=== PATIENT | male | born 1995 | race Hispanic/Latino ===

== ENCOUNTER → 2021-12-04 | Outpatient (CLI) | payer OTHER ==
--- NOTE | 2021-12-06 23:59 | DIREP ---
PROCEDURE:US TESTICULAR WITH DOPPLER COMPARISON:None. INDICATIONS:N50.89 OTHER SPECIFIED DISORDERS OF MALE GENITAL ORGANS TECHNIQUE:The scrotum was evaluated with west scale, spectral analysis, and color duplex doppler sonography. FINDINGS: RIGHT TESTICLE: Normal size and echogenicity, measuring 4.5 x 2.6 x 2.2 cm. No mass or microcalcifications a 6 mm tunic albuginea cyst is seen along the posterior margin of the testicle. LEFT TESTICLE: Normal size and echogenicity, measuring 4.1 x 2.9 x 2.6 cm. No mass or microcalcifications. DOPPLER FLOW: Symmetric waveforms with sustained diastolic flow. EPIDIDYMIS: Normal size and echogenicity bilaterally. The right epididymal head measures 1.3 x 0.9 cm. The left epididymal head measures 1.3 x 0.9 cm. OTHER: Mildly dilated vessels are seen posterior left testicle, measuring up to 3-4 mm diameter. These increase in prominence Valsalva maneuver, consistent with a small varicocele. No right varicocele. No hydrocele. CONCLUSION: 1. No evidence of testicular torsion or mass. 2. 6 mm right tunic albuginea cyst. 3. Small left varicocele. Dictated by: Eddi Daugherty MD on 12/06/2021 at 11:54 PM
== END | disposition home or self-care (01) ==
LOC: RAD 14:48
PROVIDERS: ATTEND Urology
DX: I86.1 Scrotal varices (principal); N44.1 Cyst of tunica albuginea testis; N50.89 Other specified disorders of the male genital organs
CPT/HCPCS: 76870

== ENCOUNTER 2021-12-23 06:00 | Day surgery (SDC) | payer OTHER ==
[2021-12-22 11:35] VITALS: BP 137/76
[2021-12-22 12:29] LABS: CARBON DIOXIDE 25.6 mmol/L (20.0-32)
[2021-12-22 12:30] LABS: BASOPHIL # 0.1 10^3/uL (0.0-0.1); BASOPHIL % 0.8 % (0.0-0.2); EOSINOPHIL # 0.3 10^3/uL (0.0-0.2); EOSINOPHIL % 2.6 % (0.0-5.0); LYMPHOCYTES # 2.63 10^3/uL1 (1.0-4.8); LYMPHOCYTES % 24.6 % (24.0-44.0); MEAN CORP HGB 30.4 pg (26-34); MONOCYTES # 0.7 10^3/uL (0.3-0.8); MONOCYTES % 6.8 % (5.0-12.0); NEUTROPHIL # 6.9 10^3/uL (1.8-7.7); NEUTROPHILS % 64.9 % (41.0-85.0); RED CELL DISTRIBUTION WIDTH 13.1 % (11.5-14.5)
[2021-12-23] VITALS (18 sets, daily range): BP systolic 120–147; BP diastolic 52–82
[~2021-12-23] VITALS: Ht 185.4 cm; Wt 139.7 kg
[~2021-12-23 06:00] MED LIST: ATOR10TA PO; LEVAQUIN 100 ML IV ONE; NS 1000ML 1,000 ML IV SCH; NS 1000ML 1,000 ML ONE
[2021-12-23] MEDS ORDERED: SODIUM CHLORIDE IRR BOTTLE IR ONE (07:20)
[2021-12-23] MEDS ORDERED: XYLOCAINE 2% 5ML VIAL ONE (07:33)
[2021-12-23] MEDS ORDERED: ZOFRAN ONE (07:34)
[2021-12-23] MEDS ORDERED: SUBLIMAZE ONE ×2 (07:34→08:55)
[2021-12-23] MEDS ORDERED: VERSED ONE (07:34)
[2021-12-23] MEDS ORDERED: DIPRIVAN IV ONE (07:34)
[2021-12-23] MEDS ORDERED: PEPCID IV ONE (07:34)
[2021-12-23] MEDS ORDERED: REGLAN ONE (07:34)
[2021-12-23] MEDS ORDERED: DECADRON ONE (07:34)
[2021-12-23] MEDS ORDERED: TRANSDERM-SCOP TD ONE (07:38)
[2021-12-23] MEDS ORDERED: OFIRMEV 100 ML IV ONE (08:27)
[2021-12-23] MEDS: SUBLIMAZE IV PRN ×4 (09:04→09:35)
[2021-12-23] MEDS ORDERED: SUBLIMAZE IV PRN ×2 (09:05→09:30)
[2021-12-23] MEDS ORDERED: CIPR500T86 PO (09:15)
[2021-12-23] MEDS ORDERED: TRAM50TA PO (09:15)
--- NOTE | 2021-12-23 09:19 | OPH ---
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 PROCEDURES: Right scrotal exploration and excision of the cystic nodule of the tunica albuginea of the right testicle. DESCRIPTION OF PROCEDURE: The patient was brought to the operating room, was put in supine position on the operating room table. After the patient was given a satisfactory and adequate LMA general anesthesia, the genitalia was then prepped and draped aseptically in the usual manner. First, a transverse incision was done in the right hemiscrotal sac. The incision was deepened through the subcutaneous tissue up to the tunica. Tunica was opened and the right testis was led out to the right hemiscrotal sac. This was then explored and there was a cystic nodule noted in the tunica albuginea of the right testicle. This area was then excised. The cystic nodule was excised and then the incision in the tunica albuginea was then closed with a continuous suture of 2-0 chromic catgut. After this was done, the rest of the testis was again inspected. There was no other abnormality noted, so the right testis was put back in its normal anatomical position and the small [place] drain was placed in the area and the scrotal skin incision was then closed in 2 layers with the use of a 2-0 chromic catgut in an interrupted fashion. After that pressure dressing was applied and a scrotal support was placed and the patient was then awakened and was transferred to the recovery room in stable condition. Russell Mercedes MD DR: DANO TID: [id number] RECEIPT: [id number]
[2021-12-23] MEDS ORDERED: LACTATED RINGERS 1,000 ML IV SCH (09:30)
[2021-12-23] MEDS ORDERED: SUBLIMAZE IM PRN (09:30)
[2021-12-23] MEDS ORDERED: NORCO 7.5MG PO PRN (09:30)
[2021-12-23] MEDS ORDERED: NS 1000ML 1,000 ML ONE (09:40)
== END 2021-12-23 11:25 | disposition home or self-care (01) ==
LOC: SDC 06:00
PROVIDERS: ATTEND Urology
DX: N50.89 Other specified disorders of the male genital organs (principal); N44.2 Benign cyst of testis; G43.909 Migraine, unspecified, not intractable, without status migrainosus; E66.9 Obesity, unspecified; J45.909 Unspecified asthma, uncomplicated; Z79.899 Other long term (current) drug therapy; Z98.890 Other specified postprocedural states; Z79.01 Long term (current) use of anticoagulants; Z87.891 Personal history of nicotine dependence; Z90.89 Acquired absence of other organs; Z68.41 Body mass index [BMI] 40.0-44.9, adult
CPT/HCPCS: 85025; 36415; 80048; 85610; 85730; 55110; 88305; J7030 ×2; J1100; A4217; J0131; J3490 ×2; J1956 ×2; J2001; J2405; J2250; J3010 ×2; J2765